=== PATIENT | male | born 1945 | race Caucasian/White ===

== ENCOUNTER 2021-01-15 18:51 | Inpatient (IN) | payer OTHER, MEDICAID ==
[~2021-01-15] VITALS: Ht 172.7 cm; Wt 71.2 kg
[2021-01-15 18:51] VITALS: BP 99/67
--- NOTE | 2021-01-15 18:51 | NUR ---
santa HASKINS via gurney to bed 06.
--- NOTE | 2021-01-15 19:13 | NUR ---
Gave report to MIRELLA Salvador. Transfer of care at this time.
--- NOTE | 2021-01-15 19:15 | NUR ---
RECEIVED BEDSIDE ENDORSEMENT FROM AM SHIFT RN. PT IS RESTING IN BED, NO DISTRESS, ON ROOM AIR, SAFETY MEASURES IN PLACE, WILL CONTINUE TO MONITOR.
--- NOTE | 2021-01-15 19:19 | NUR ---
Said examining patient.
--- NOTE | 2021-01-15 19:24 | NUR ---
FAMILY AT BEDSIDE SPEAKING WITH DR. LEYVA
[2021-01-15] MEDS ORDERED: PANTOPRAZOLE 40 MG INJ VIAL IVP ONE (19:25)
[2021-01-15] MEDS ORDERED: NACL 0.9% 1,000 ML IV ONE (19:25)
--- NOTE | 2021-01-15 19:30 | NUR ---
BIBA 75/M, CC:VOMITING BLOOD, SMALL AMOUNT PER DAUGHTER, ABD PAIN, TOLERABLE AT THIS TIME, HX; DM, HLD. NKA, SAFETY MEASURES IN PLACE.
[2021-01-15 19:53] LABS: BASOPHILS # (AUTO) 0.1 K/uL (0.00-0.22); BASOPHILS % (AUTO) 0.5 % (0.0-2.0); EOSINOPHILS # (AUTO) 0.1 K/uL (0-0.4); EOSINOPHILS % (AUTO) 0.6 % (0.0-4.0); HEMATOCRIT 40.9 % (36-52); HEMOGLOBIN 13.3 g/dL (12.0-18.0); LYMPHOCYTES # (AUTO) 0.6 K/uL (2.0-11.5); LYMPHOCYTES % (AUTO) 3.9 % (20.5-51.1); MEAN CORPUSCULAR HEMOGLOBIN 27 pg (27-31); MEAN CORPUSCULAR HGB CONC 33 g/dL (33-37); MEAN CORPUSCULAR VOLUME 82.5 fL (80-94); MONOCYTES # (AUTO) 0.8 K/uL (0.8-1.0); MONOCYTES % (AUTO) 5.2 % (1.7-9.3); NEUTROPHILS # (AUTO) 13.7 K/uL (1.8-7.7); NEUTROPHILS % (AUTO) 89.8 % (42.2-75.2); PLATELET COUNT (AUTO) 298 K/uL (140-450); RED BLOOD CELL COUNT(AUTO) 4.96 MIL/uL (4.20-6.10); RED CELL DISTRIBUTION WIDTH 21.4 % (11.6-13.7); WHITE BLOOD COUNT (AUTO) 15.3 K/uL (4.8-10.8)
[2021-01-15 20:07] LABS: PROTHROMBIN TIME 10.4 secs (10.8-13.4)
[2021-01-15 20:10] LABS: ANION GAP 17.7 (8-16); ASPARTATE AMINOTRANSFERASE 23 U/L (15-37); CARBON DIOXIDE 22.3 mmol/L (21-32); CHLORIDE 99 mmol/L (98-107); CREATININE 1.5 mg/dL (0.6-1.3); GLUCOSE 219 mg/dL (74-106); SODIUM SERUM 134 mmol/L (136-145); TOTAL BILIRUBIN 1.3 mg/dL (0.0-1.0); UREA NITROGEN, BLOOD 41 mg/dL (7-18)
--- NOTE | 2021-01-15 20:17 | NUR ---
Ultrasound at bedside.
[2021-01-15] MEDS ORDERED: NACL 0.9% 2,000 ML IV ONE (21:20)
[2021-01-15] MEDS ORDERED: AZIL40TA PO (21:30)
[2021-01-15] MEDS ORDERED: METF500T2 PO (21:30)
[2021-01-15] MEDS ORDERED: SIMV20TA1 PO (21:30)
[2021-01-15] MEDS ORDERED: ASPI-1822 PO (21:30)
[2021-01-15] MEDS ORDERED: EMPA25TA PO (21:30)
--- NOTE | 2021-01-15 22:34 | NUR ---
RECEIVED A CALL FROM B[place] AT [facility], PT WILL BE FOR HIDA SCAN TOMORROW 01/16/21 BETWEEN 11 AM TO 12PM. NO OPIOID AND NPO AFTER MIDNIGHT. WILL ENDORSED.
--- NOTE | 2021-01-15 23:00 | NUR ---
Patient will be admitted to care of DR. CUNNINGHAM. Admited to TELEMETRY. Will go to room 123A. Belongings list completed. Report to MIRELLA GOULD.
--- NOTE | 2021-01-15 23:00 | NUR ---
ER CALLED REPORT GIVEN. BROUGHT PATIENT TO [facility] UNIT VIA GURNEY AWAKE, ALERT, NO ACUTE DISTRESS NOTED. RESPIRATION EVEN UNLABORED. DX: HEMATEMESIS CONCERNING UPPER GI BLEED, ACUTE KIDNEY INJURY, CHOLELITHIASIS. HX: DM, HLD, HTN, PUD. SAFETY MEASURES IN PLACE. BED IN LOW POSITION. CALL LIGHT PLACED WITHIN REACH. 2341- IVF OF NS AT 120 ML/HR AND FLAGYL IVPB ADMINISTERED PER MD ORDERED. MRSA NARES SCREENING DONE. ON TELE MONITORING. WILL CONTINUE TO MONITOR.
[2021-01-15] MEDS: NACL 0.9% 1,000 ML IV SCH (23:41)
[2021-01-15] MEDS: metroNIDAZOLE 500 MG/NS PREMIX 100 ML IV SCH (23:41)
[2021-01-16] VITALS: BP 97/60
[2021-01-16] MEDS ORDERED: OCTREOTIDE ACETATE 1000 MCG/5 ML VIAL ONE (00:27)
[2021-01-16] MEDS: OCTREOTIDE ACETATE 1.25 MG in NACL 0.9% 250 ML IV SCH ×2 (00:38→21:35)
[2021-01-16 04:00] VITALS: BP 99/60
[2021-01-16] MEDS: metroNIDAZOLE 500 MG/NS PREMIX 100 ML IV SCH ×3 (05:00→21:10)
[2021-01-16] MEDS: PANTOPRAZOLE 40 MG INJ VIAL IVP SCH ×3 (05:00→21:11)
[2021-01-16] MEDS: NACL 0.9% 1,000 ML IV SCH ×3 (05:55→23:51)
--- NOTE | 2021-01-16 07:23 | NUR ---
ENDORSED TO AM SHIFT NURSE FOR CONTINUITY OF CARE. PATIENT IS STABLE
--- NOTE | 2021-01-16 07:28 | NUR ---
PT RECEIVED FROM SENIOR LINUX ENGINEER RN. PT IS SITTING IN BED COMFORTABLY. ALL SAFETY MEASURES ARE IN PLACE.
[2021-01-16 08:00] VITALS: BP 92/53
[2021-01-16] MEDS: SUCRALFATE 1 GM TAB PO SCH ×4 (08:58→21:11)
--- NOTE | 2021-01-16 09:01 | NUR ---
PT RESTING IN BED. PT REMAINS NPO. PT REORIENTED TO ROOM. ALL SAFETY MEASURES ARE IN PLACE
--- NOTE | 2021-01-16 09:02 | NUR ---
PATIENT HAS BEEN SCREENED AND CATEGORIZED MODERATE NUTRITION RISK. PATIENT WILL BE SEEN WITHIN 3-5 DAYS OF ADMISSION. 01/18/21 01/20/21 FNS REFERRAL RECEIVED FOR VOMITING OVER 3 DAYS NOT APPROPRIATE, ACCORDING TO H&P NOTE PATIENT ONLY HAD VOMITING X1 DAY. [address]
[2021-01-16] MEDS ORDERED: MAG SULF 2000 MG/WATER PREMIX 50 ML IV PRN (09:20)
[2021-01-16] MEDS ORDERED: POTASSIUM CHLORIDE 10 MEQ TABER PO PRN (09:20)
[2021-01-16] MEDS ORDERED: DEXTROSE 50% 50 ML SYR IVP PRN (10:25)
[2021-01-16] MEDS ORDERED: INSULIN LISPRO SLIDING SCALE 100 UNITS/ML VIAL SUBQ PRN (10:25)
[2021-01-16] MEDS ORDERED: HYDROcodone/APAP 5/325 MG 1 TAB TAB PO PRN (10:40)
[2021-01-16] MEDS ORDERED: MORPHINE SULFATE 2 MG/ML SYR IVP PRN ×2 (10:40→13:45)
[2021-01-16] MEDS ORDERED: DOCUSATE SODIUM 100 MG GELCAP PO PRN (10:40)
[2021-01-16] MEDS ORDERED: ACETAMINOPHEN 325 MG TAB PO PRN (10:40)
[2021-01-16] MEDS ORDERED: LORazepam 2 MG/ML VIAL IM/IVP PRN (10:40)
[2021-01-16] MEDS ORDERED: ONDANSETRON 4 MG/2 ML VIAL IM/IVP PRN (10:40)
[2021-01-16 10:55] LABS: ANION GAP 10.6 (8-16); CARBON DIOXIDE 25.6 mmol/L (21-32); CHLORIDE 107 mmol/L (98-107); GLUCOSE 135 mg/dL (74-106); POTASSIUM 4.2 mmol/L (3.5-5.1); SODIUM SERUM 139 mmol/L (136-145); UREA NITROGEN, BLOOD 32 mg/dL (7-18)
[2021-01-16 10:56] LABS: BASOPHILS % (AUTO) 0.3 % (0.0-2.0); EOSINOPHILS % (AUTO) 0.4 % (0.0-4.0); HEMATOCRIT 29.3 % (36-52); HEMOGLOBIN 9.6 g/dL (12.0-18.0); LYMPHOCYTES # (AUTO) 0.6 K/uL (2.0-11.5); LYMPHOCYTES % (AUTO) 9.2 % (20.5-51.1); MEAN CORPUSCULAR HEMOGLOBIN 27 pg (27-31); MEAN CORPUSCULAR HGB CONC 33 g/dL (33-37); MEAN CORPUSCULAR VOLUME 82.5 fL (80-94); MONOCYTES # (AUTO) 0.5 K/uL (0.8-1.0); MONOCYTES % (AUTO) 6.8 % (1.7-9.3); NEUTROPHILS # (AUTO) 5.6 K/uL (1.8-7.7); NEUTROPHILS % (AUTO) 83.3 % (42.2-75.2); PLATELET COUNT (AUTO) 181 K/uL (140-450); RED BLOOD CELL COUNT(AUTO) 3.56 MIL/uL (4.20-6.10); RED CELL DISTRIBUTION WIDTH 21.3 % (11.6-13.7); WHITE BLOOD COUNT (AUTO) 6.7 K/uL (4.8-10.8)
--- NOTE | 2021-01-16 11:00 | NUR ---
PT ROUNDED ON. PT TALKING ON THE PHONE WITH FAMILY. PT REMAINS NPO. PT SHOWS NO S/S OF DISTRESS BG ASSESSED , NO INSULIN COVERAGE NEEDED.
[2021-01-16 11:31] LABS: CHOL/HDL RATIO 3.7 (1-4.5); THYROID STIMULATING HORMONE 0.96 uIU/mL (0.34-3.74)
[2021-01-16] MEDS: BLOOD GLUCOSE MONITORING 1 DEV DEV FS SCH ×3 (11:48→21:21)
[2021-01-16 12:00] VITALS: BP 121/67
--- NOTE | 2021-01-16 12:33 | NUR ---
PT SITTING IN BED. NO S/S OF DISTRESS/ ALL SAFETY MEASURES IN PLACE.
--- NOTE | 2021-01-16 13:25 | NUR ---
PT LEFT UNIT VIA WHEEL CHAIR FOR HIDA SCAN. PT IN STABLE CONDITION
--- NOTE | 2021-01-16 15:20 | NUR ---
PRN MEDICATION GIVEN FOR HIDA SCAN. PT EDUCATED
--- NOTE | 2021-01-16 15:27 | NUR ---
MD AT BEDSIDE EXPLAINED PROCEDURE USING [employer] CONSULTANT ID # [id number] . CONSENT WAS OBTAINED PT STATED HE HAD NO QUESTIONS REGARDING PROCEDURE.
--- NOTE | 2021-01-16 15:37 | NUR ---
PT LEFT UNIT VIA [place] [facility]
[2021-01-16] MEDS ORDERED: fentaNYL citrate 0.05 MG/ML VIAL ONE (15:42)
[2021-01-16] MEDS ORDERED: diphenhydrAMINE 50 MG/ML VIAL ONE (15:42)
[2021-01-16] MEDS ORDERED: MIDAZOLAM 5 MG/5 ML VIAL ONE (15:43)
[2021-01-16 16:00] VITALS: BP 95/56
[2021-01-16] MEDS ORDERED: MIDAZOLAM 2 MG/2 ML VIAL IVP ONE (16:05)
[2021-01-16] MEDS ORDERED: fentaNYL citrate 0.05 MG/ML VIAL IVP ONE (16:05)
[2021-01-16] MEDS ORDERED: EPINEPHrine PFS 0.1 MG/ML SYR IVP ONE (16:05)
--- NOTE | 2021-01-16 16:35 | NUR ---
PT ARRIVED ON UNIT VIA GURNEY PT STABLE. VS 109/60. RR 16 . 98.1 HR 89
--- NOTE | 2021-01-16 16:43 | NUR ---
O2 % 82% PT PLACED ON 3 L NC
--- NOTE | 2021-01-16 16:50 | NUR ---
PTS 02 ,88 ON O2
[2021-01-16] MEDS: METOCLOPRAMIDE 10 MG TAB PO SCH (17:09)
--- NOTE | 2021-01-16 17:31 | NUR ---
PT ON ROOM AIR 02% 93% NO S/S OF DISTRESS
--- NOTE | 2021-01-16 18:21 | NUR ---
PT ASSISTED WITH PHONE SHAPER SET UP OPERATOR. ALL SAFETY MEASURES IN PLACE
--- NOTE | 2021-01-16 19:40 | NUR ---
PT ENDORSED TO COLLATOR HAND RN FOR CONTINUITY OF CARE. PT STABLE
--- NOTE | 2021-01-16 19:41 | NUR ---
RECEIVED PT IN STABLE CONDITION FROM AM NURSE. PT IS AWAKE,ALERT AND ORIENTED X4. SPEAKS [place]. WITH FAMILY AT BEDSIDE. ON TELE MONITOR. NO C/O ANY DISCOMFORT NOR PAIN NOTED. WILL MONITOR FOR ANY VOMITING OF BLOOD. IVF INFUSING WELL ON THE LT FA G#22 AND SANDOSTATIN DRIP INFUSING ON THE LT WRIST G#22. FREQ ROUNDS NEEDED. BED ON LOWEST POSITION. SIDE RAILS UP X2. CALL LIGHT AND URINAL WITH REACH. WILL CONTINUE TO MONITOR.
[2021-01-16 20:00] VITALS: BP 101/52
[2021-01-16] MEDS ORDERED: ZOLPIDEM 5 MG TAB PO PRN (21:00)
--- NOTE | 2021-01-16 21:00 | NUR ---
PT TOOK ALL DUE MEDS . TOLERATE WELL. NO C/O ANY PAIN . WILL CONTINUE TO MONITOR.
[2021-01-16] MEDS: LACTULOSE 20 GM/30 ML UDC PO SCH (21:11)
--- NOTE | 2021-01-16 23:00 | NUR ---
CHECKED ON PT. ASLEEP. NO DISTRESS NOTED. WILL CONTINUE TO MONITOR.
[2021-01-17 00:30] VITALS: BP 92/54
--- NOTE | 2021-01-17 00:30 | NUR ---
VITAL SIGNS TAKEN . BP LOW 92/54, HR-64. ASYMPTOMATIC. WILL CONTINUE TO MONITOR.
--- NOTE | 2021-01-17 02:00 | NUR ---
MADE ROUNDS. PT ASLEEP. NO S/S OF ANY DISCOMFORT NOTED.
[2021-01-17 04:00] VITALS: BP 96/55
[2021-01-17 04:42] LABS: APPEARANCE,URINE CLEAR (CLEAR); BILIRUBIN,URINE NEGATIVE (NEGATIVE); BLOOD, URINE NEGATIVE (NEGATIVE); COLOR,URINE YELLOW (YELLOW); LEUKOCYTE ESTERASE ,URINE NEGATIVE (NEGATIVE); NITRITE, URINE NEGATIVE (NEGATIVE); PH,URINE 5.5 (5.0-9.0); UGLUCOSE 3+ (NEGATIVE)
[2021-01-17] MEDS: metroNIDAZOLE 500 MG/NS PREMIX 100 ML IV SCH ×2 (04:43→12:03)
[2021-01-17] MEDS: NACL 0.9% 1,000 ML IV SCH (04:52)
[2021-01-17] MEDS: OCTREOTIDE ACETATE 1.25 MG in NACL 0.9% 250 ML IV SCH (04:54)
[2021-01-17 05:02] LABS: HEMATOCRIT 27.6 % (36-52); HEMOGLOBIN 9.1 g/dL (12.0-18.0); MEAN CORPUSCULAR HEMOGLOBIN 27 pg (27-31); MEAN CORPUSCULAR HGB CONC 33 g/dL (33-37); MEAN CORPUSCULAR VOLUME 81.8 fL (80-94); PLATELET COUNT (AUTO) 162 K/uL (140-450); RED BLOOD CELL COUNT(AUTO) 3.37 MIL/uL (4.20-6.10); RED CELL DISTRIBUTION WIDTH 21.3 % (11.6-13.7)
[2021-01-17 05:09] LABS: ANION GAP 11.1 (8-16); CHLORIDE 108 mmol/L (98-107); CREATININE 0.9 mg/dL (0.6-1.3); GLUCOSE 116 mg/dL (74-106); POTASSIUM 4.1 mmol/L (3.5-5.1); SODIUM SERUM 140 mmol/L (136-145); UREA NITROGEN, BLOOD 25 mg/dL (7-18)
[2021-01-17 05:15] LABS: ALBUMIN 3.3 g/dL (3.4-5.0); BILIRUBIN,DIRECT 0.2 mg/dL (0.0-0.3); MAGNESIUM 2.1 mg/dL (1.8-2.4); PHOSPHORUS 4.2 mg/dL (2.5-4.9); TOTAL BILIRUBIN 0.9 mg/dL (0.0-1.0)
--- NOTE | 2021-01-17 06:00 | NUR ---
NO VOMITING OF BLOOD DURING THE SHIFT.
[2021-01-17 06:31] LABS: LYMPHOCYTES % (MANUAL) 10 % (20-46); MONOCYTES % (MANUAL) 7 % (5-12)
[2021-01-17] MEDS: BLOOD GLUCOSE MONITORING 1 DEV DEV FS SCH ×2 (06:58→11:41)
[2021-01-17] MEDS: METOCLOPRAMIDE 10 MG TAB PO SCH ×3 (06:59→16:56)
--- NOTE | 2021-01-17 07:10 | NUR ---
RECEIVED REPORT FROM ADVANCED MANUFACTURING ENGINEER NURSE FOR CONTINUITY OF CARE. PT IS AWAKE AND ALERT. A&OX4. ON RA WITH BREATHING UNLABORED. SR ON TELE MONITORING. PT IS AMBULATORY INDEPENDENTLY. NO EPISODE OF EMESIS AT THIS TIME. SKIN IS WARM, DRY, AND INTACT. IV IS IN THE LEFT FOREARM 20 GAUGE INFUSING NS AT 100 ML PER HOUR PER ORDER AND SANDOSTATIN AT 10 ML PER HOUR PER ORDER. PT IS NPO EXCEPT MEDS FOR PENDING CT ABD/PELVIS W/ CONTRAST. WAITING FOR CONSENT TO BE SIGNED. STANDARD PRECAUTIONS IN PLACE. WILL CONTINUE TO MONITOR.
--- NOTE | 2021-01-17 07:10 | NUR ---
ENDORSED TO AM NURSE FOR CONTINUITY OF CARE
--- NOTE | 2021-01-17 07:20 | NUR ---
ENDORSED TO AM NURSE IN STABLE CONDITION FOR CONTINUITY OF CARE.
[2021-01-17 08:00] VITALS: BP 96/57
[2021-01-17 08:07] LABS: T4 (THYROXINE) 4.7 ug/dL (4.5-12.0)
--- NOTE | 2021-01-17 09:30 | NUR ---
PT IS AWAKE AND ALERT. NO DISTRESS NOTED. BREATHING UNLABORED ON RA. LAYING IN SEMI FOWLERS POSITION. IV'S ARE PATENT AND INTACT. WILL CONTINUE TO MONITOR.
[2021-01-17] MEDS: PANTOPRAZOLE 40 MG INJ VIAL IVP SCH ×2 (09:50→20:52)
--- NOTE | 2021-01-17 10:00 | NUR ---
PT WAS TAKEN TO CT SCAN BY WHEELCHAIR WITH MATERNITY NURSE. WILL WAIT FOR PT TO ARRIVE BACK TO UNIT.
--- NOTE | 2021-01-17 10:16 | NUR ---
PT IS BACK FROM CT SCAN AND STABLE AT THIS TIME. WILL WAIT FOR RESULTS.
[2021-01-17] MEDS: SUCRALFATE 1 GM TAB PO SCH ×2 (10:31→13:43)
[2021-01-17] MEDS: LACTULOSE 20 GM/30 ML UDC PO SCH ×2 (10:31→20:52)
[2021-01-17 12:00] VITALS: BP 113/59
--- NOTE | 2021-01-17 12:00 | NUR ---
PT IS SLEEPING. NO DISTRESS NOTED. BREATHING IS UNLABORED. IV FLUIDS ARE INFUSING ORDERED. WILL CONTINUE TO MONITOR.
--- NOTE | 2021-01-17 14:00 | NUR ---
ROUNDED ON PT. HE IS SITTING IN BED. DENIES ANY PAIN OR NAUSEA. PT IS STABLE. IV'S ARE PATENT AND INFUSING ORDERED. WILL CONTINUE TO MONITOR.
[2021-01-17 16:00] VITALS: BP_SYST 113; BP_SYST 96; BP_DIAS 55; BP_DIAS 61
--- NOTE | 2021-01-17 16:00 | NUR ---
PT WAS GIVEN WATER AND JUICE REQUESTED. PT TOLERATED LIQUIDS WELL. DENIES PAIN OR N/V. NO DISTRESS NOTED. WILL CONTINUE TO MONITOR.
--- NOTE | 2021-01-17 17:44 | NUR ---
PT ASLEEP. CHEST RISE AND FALL SYMMETRICAL. IV FLUIDS INFUSING AT 40 ML PER HOUR PER ORDER. DENIES ANY COMPLAINTS OR PAIN AT THIS TIME. PT STABLE.
--- NOTE | 2021-01-17 18:20 | NUR ---
PT WAS TAKEN TO RADIOLOGY DEPT FOR XRAY VIA WHEELCHAIR.
--- NOTE | 2021-01-17 19:15 | NUR ---
ENDORSED PT TO PROCUREMENT INTERN NURSE FOR CONTINUITY OF CARE. PT JUST ARRIVED VIA WHEELCHAIR FROM RADIOLOGY DEPT. PT IS STABLE AT THIS TIME. PLAN OF CARE DISCUSSED.
--- NOTE | 2021-01-17 19:20 | NUR ---
RECEIVED PT IN STABLE CONDITION FROM AM NURSE. PT JUST GOT BACK FROM XR OF BONE. AWAKE,ALERT AND ORIENTED X4. AMBULATORY. ON TELE MONITOR. NO C/O ANY DISCOMFORT NOR PAIN NOTED. HAS HL ON LT FA G#20 AND LT WRIST G#22. IVF TO RESTART . PLAN OF CARE DISCUSSED AND VERBALIZED UNDERSTANDING. BED ON LOW POSITION. SIDE RAILS UP X2. CALL LIGHT AND URINAL WITHIN EASY REACH. WILL CONTINUE TO MONITOR.
[2021-01-17 20:00] VITALS: BP 115/48
[2021-01-17] MEDS: FERROUS SULFATE 300 MG/5 ML UDC GT SCH (20:52)
--- NOTE | 2021-01-17 21:00 | NUR ---
ALL DUE MEDS GIVEN . NO C/O ANY DISCOMFORT NOTED.
--- NOTE | 2021-01-17 22:00 | NUR ---
MADE ROUNDS. PT IS ASLEEP. NO S/S OF ANY DISCOMFORT NOR PAIN NOTED.
--- NOTE | 2021-01-17 23:13 | NUR ---
ENDORSED PT IN STABLE CONDITION TO FAIRY FOR CONTINUITY OF CARE.
--- NOTE | 2021-01-17 23:14 | NUR ---
RECEIVED REPORT FROM SHAUNA RN.PT'S CONDITION IS STABLE.IVF INFUSING WELL.CALL IS WITHIN REACH.NO DISTRESS NOTED NOW.WILL CONTINUE MONITORING.
[2021-01-18] VITALS: BP 110/60
--- NOTE | 2021-01-18 00:50 | NUR ---
VS STABLE,HR SR.IVF IN PROGRESS.NO DISTRESS NOTED NOW.SLEEPING.CALL LIGHT IN REACH.
[2021-01-18 04:00] VITALS: BP 120/70
--- NOTE | 2021-01-18 04:15 | NUR ---
SLEEPING.IVF INFUSING WELL.CALL LIGHT IN REACH.HR IS SR.VS STABLE.NO S/S OF ANY DISTRESS NOTED.
[2021-01-18 06:06] LABS: HEMATOCRIT 29.7 % (36-52); HEMOGLOBIN 9.7 g/dL (12.0-18.0); MEAN CORPUSCULAR HEMOGLOBIN 27 pg (27-31); MEAN CORPUSCULAR HGB CONC 33 g/dL (33-37); MEAN CORPUSCULAR VOLUME 83.1 fL (80-94); PLATELET COUNT (AUTO) 185 K/uL (140-450); RED BLOOD CELL COUNT(AUTO) 3.57 MIL/uL (4.20-6.10); RED CELL DISTRIBUTION WIDTH 20.9 % (11.6-13.7)
[2021-01-18 06:17] LABS: ANION GAP 10.1 (8-16); CARBON DIOXIDE 27.7 mmol/L (21-32); CHLORIDE 107 mmol/L (98-107); GLUCOSE 130 mg/dL (74-106); POTASSIUM 3.8 mmol/L (3.5-5.1); SODIUM SERUM 141 mmol/L (136-145); UREA NITROGEN, BLOOD 19 mg/dL (7-18)
--- NOTE | 2021-01-18 06:20 | NUR ---
SLEPT WELL.NO C/O PAIN NOW.CONDITION STABLE.
[2021-01-18 06:22] LABS: PHOSPHORUS 3.8 mg/dL (2.5-4.9)
[2021-01-18 06:47] LABS: LYMPHOCYTES % (MANUAL) 12 % (20-46); MONOCYTES % (MANUAL) 6 % (5-12)
[2021-01-18] MEDS: METOCLOPRAMIDE 10 MG TAB PO SCH ×2 (07:05→11:07)
--- NOTE | 2021-01-18 07:10 | NUR ---
RECEIVED BEDSIDE REPORT FROM AIR CARGO GROUND CREW SUPERVISOR NURSE FOR CONTINUITY OF CARE. PT IS AWAKE AND ALERT. A&OX4. ON RA WITH BREATHING UNLABORED. SR ON TELE MONITOR. PT IS AMBULATORY INDEPENDENTLY. SKIN IS WARM, DRY, AND INTACT. IV IN THE LEFT FOREARM PATENT AND INTACT. PT IS STABLE. DENIES ANY PAIN. PLAN OF CARE DISCUSSED.
--- NOTE | 2021-01-18 07:39 | NUR ---
EPORT GIVEN TO AM RN IN STABLE CONDITION.
[2021-01-18 08:00] VITALS: BP 134/63
[2021-01-18] MEDS: NACL 0.9% 1,000 ML IV SCH (08:24)
[2021-01-18] MEDS: FERROUS SULFATE 300 MG/5 ML UDC GT SCH (08:28)
[2021-01-18] MEDS: LACTULOSE 20 GM/30 ML UDC PO SCH (08:28)
[2021-01-18] MEDS: PANTOPRAZOLE 40 MG INJ VIAL IVP SCH (08:29)
--- NOTE | 2021-01-18 08:45 | NUR ---
PATIENT WAS ASKED IF HE HAD A BOWEL MOVEMENT AND STATED THAT HE HAD A SMALL SOFT BOWEL MOVEMENT. PATIENT STATED HE HAS HAD NO N/V. PATIENT STATED HE HAS NO ABDOMINAL PAIN AND IS COMFORTABLE SITTING IN BED. PATIENT ASKED IF HE WAS PASSING GAS AND STATED THAT HE HAS BEEN PASSING GAS. TALKED TO LEGAL PROCESS SPECIALIST IN #[id number].
--- NOTE | 2021-01-18 09:15 | NUR ---
PT IS STABLE. EATING BREAKFAST IN BED. NO DIFFICULTY CHEWING OR SWALLOWING. PT DENIES N/V, ABD PAIN. PT TOLERATED SOLID FOODS WELL.
[2021-01-18] MEDS ORDERED: PANT40EC PO (09:59)
[2021-01-18] MEDS ORDERED: FER300L GT (09:59)
--- NOTE | 2021-01-18 10:55 | NUR ---
SPOKE TO SP MENDOZA, DAUGHTER OF PT, AND INFORMED HER THAT PT IS NOW BEING DISCHARGED. ALL QUESTIONS ANSWERED. SP SAID SHE IS ABLE TO HEAD SHIPPER PT AT 1 PM BUT WILL CALL BACK WHEN SHE FIGURES OUT THE EXACT TIME. WILL WAIT FOR CALL BACK. PHONE NUMBER [phone].
--- NOTE | 2021-01-18 11:30 | NUR ---
FAMILY AT BEDSIDE TALKING WITH PT. PT IS STABLE. NO COMPLAINTS OF PAIN. NO DISTRESS NOTED. WILL CONTINUE TO MONITOR.
[2021-01-18 11:48] VITALS: BP 141/74
[2021-01-18 12:00] VITALS: BP 141/74
--- NOTE | 2021-01-18 12:30 | NUR ---
FAMILY MEMBER, ESA, PICKED UP PT UPON DISCHARGE. ESA WAS AT BEDSIDE AND ESCORTED PT OFF THE UNIT. PT IS AWAKE AND ALERT. A&OX4. BREATHING IS UNLABORED ON RA. VS ARE STABLE. BP 141/74, HR 64, RR 20, O2 SAT 97%, TEMP 98 F. GAVE DISCHARGED INSTRUCTIONS INCLUDING FOLLOWING UP WITH PRIMARY CARE DOCTOR, MEDICATIONS ORDERED AND SIDE EFFECTS, AND WORSENING SYMPTOMS. PT VERBALIZED UNDERSTANDING. PT HAS LEFT THE UNIT, STABLE CONDITION.
[2021-01-19 08:08] LABS: AFP (TUMOR MARKER) <0.9 ng/mL (0.0-8.3); HEPATITIS A ANTIBODY IGM Negative (Negative); HEPATITIS B SURFACE ANTIBODY Non Reactive (.); HEPATITIS B SURFACE ANTIGEN Negative (Negative)
== END 2021-01-18 12:30 | disposition home or self-care (01) | DRG 377 ==
LOC: MED 18:51 → MTU 22:41
DX: K92.2 Gastrointestinal hemorrhage, unspecified (principal); N17.0 Acute kidney failure with tubular necrosis; E87.1 Hypo-osmolality and hyponatremia; K22.6 Gastro-esophageal laceration-hemorrhage syndrome; Z20.822 Contact with and (suspected) exposure to COVID-19; E11.9 Type 2 diabetes mellitus without complications; I10 Essential (primary) hypertension; Z87.11 Personal history of peptic ulcer disease; K80.20 Calculus of gallbladder without cholecystitis without obstruction; R74.8 Abnormal levels of other serum enzymes; I25.10 Atherosclerotic heart disease of native coronary artery without angina pectoris; E78.5 Hyperlipidemia, unspecified; E86.0 Dehydration; K80.50 Calculus of bile duct without cholangitis or cholecystitis without obstruction; K76.0 Fatty (change of) liver, not elsewhere classified; D17.71 Benign lipomatous neoplasm of kidney
CPT/HCPCS: 36415; 71045; 76705; 77074; 78445; 80048; 80053; 80076; 81003; 82105; 82948; 83036; 83690; 83735; 83880; 84100; 84134; 84154; 84436; 84443; 84484; 85025; 85610; 85730; 86677; 86704; 86706; 86708; 86709; 86803; 86886; 86900; 86901; 87081; 87340; 93005; 96361; 96374; 97163-GP; 99291; A9510; C9113; J0171; J1200; J1815; J2250; J2270; J2354; J3010; J3490; J7030; J8597; Q9967